=== PATIENT | male | born 1955 ===

== ENCOUNTER 2024-07-24 06:09 | Day surgery (SDC) | payer MEDICARE, SELFPAY ==
[2024-07-24 07:07] VITALS: BMI 35.6
[2024-07-24 07:12] VITALS: BP 120/82
[2024-07-24] MEDS: NORMOSOL-R/PLASMALYTE-A 1000 IV (07:25)
[2024-07-24 07:28] LABS: Glucose - Point of Care 107 mg/dl (70-99)
[2024-07-24 07:51] LABS: INR 1.11; PT 14.8 Sec (11.4-14.6)
[2024-07-24 07:52] LABS: APTT 31.6 Sec (23.4-35.0)
[2024-07-24 09:15] VITALS: BP 138/69
[2024-07-24 09:30] VITALS: BP 139/73
[2024-07-24 09:45] VITALS: BP 145/71
== END 2024-07-24 09:50 | disposition home or self-care (01) ==
LOC: SDS 06:09
PROVIDERS: ATTENDING PHYSICIAN Otolaryngology
DX: L57.8 Other skin changes due to chronic exposure to nonionizing radiation (principal)
CPT/HCPCS: 14060; 88307; 88332; 82962; 85610; 85730; 88331